=== PATIENT | male | born 1955 | race Caucasian/White ===

== ENCOUNTER 2023-12-21 09:56 | Inpatient (IN) | payer MEDICARE, MEDICAID ==
[~2023-12-21] VITALS: Ht 180.3 cm; Wt 70.4 kg
[2023-12-21] MEDS ORDERED: CYAN500T71 PO (10:37)
[2023-12-21] MEDS ORDERED: QUET-1 PO (10:37)
[2023-12-21] MEDS ORDERED: OLAN5TAB5 PO (10:37)
[2023-12-21] MEDS ORDERED: BENZ1TAB93 PO (10:37)
[2023-12-21] MEDS ORDERED: FERR325T28 PO (10:37)
[2023-12-21] MEDS ORDERED: HALO10TA13 PO ×2 (10:37)
[2023-12-21] MEDS ORDERED: ACET-1008 PO (10:37)
[2023-12-21] MEDS ORDERED: BUSP10TA11 PO (10:37)
[2023-12-21] MEDS ORDERED: ERGO500041 PO (10:37)
[2023-12-21 10:44] LABS: BASOPHILS # (AUTO) 0.1 X10'3 (0-0.2); BASOPHILS % (AUTO) 0.8 % (0-1); EOSINOPHILS # (AUTO) 0.2 X10'3 (0-0.9); HEMOGLOBIN 14.2 g/dl (14.0-17.9); LYMPHOCYTES # (AUTO) 1.2 X10'3 (1.1-4.8); MEAN CORPUSCULAR HEMOGLOBIN 31.6 PG (27.0-31.0); MEAN CORPUSCULAR HGB CONC 33.8 g/dL (33.0-36.5); MEAN CORPUSCULAR VOLUME 93.5 FL (78-98); MEAN PLATELET VOLUME 7.4 FL (7.4-10.4); MONOCYTES # (AUTO) 0.7 X10'3 (0-0.9); MONOCYTES % (AUTO) 8.3 % (2-12); NEUTROPHILS # (AUTO) 6.4 X10'3 (1.8-7.7); NEUTROPHILS % (AUTO) 74.9 % (42-75); PLATELET COUNT 268 X10'3 (140-440); RED BLOOD COUNT 4.49 X10'6 (4.70-6.10); RED CELL DISTRIBUTION WIDTH 13.2 % (11.5-14.5); WHITE BLOOD COUNT 8.5 X10'3 (4.5-11.0)
[2023-12-21 10:52] LABS: BILIRUBIN,URINE NEGATIVE (Neg); CLARITY,URINE CLEAR (Clear); COLOR,URINE YELLOW (Yellow); GLUCOSE, URINE NEGATIVE (Neg); KETONES,URINE NEGATIVE (Neg); LEUKOCYTE ESTERASE ,URINE NEGATIVE (Neg); NITRITES, URINE NEGATIVE (Neg); OCCULT BLOOD,URINE SMALL (Neg); PROTEIN,URINE NEGATIVE (Neg); UROBILINOGEN,URINE 0.2 E.U/dL (0.2-1.0)
[2023-12-21 11:00] LABS: UA COLLECTION TYPE CLN CATCH MIDSTREAM
[2023-12-21 11:07] LABS: ALBUMIN 3.2 G/DL (3.4-5.0); ANION GAP 6 (8-16); BLOOD UREA NITROGEN 19 MG/DL (7-18); BUN/CREATININE RATIO 17.3 (10.0-20.0); CALCIUM 8.6 MG/DL (8.5-10.1); CHLORIDE 104 MMOL/L (99-107); ETHANOL < 10 MG/DL (<10); GLUCOSE 104 MG/DL (70-104); POTASSIUM 3.9 MMOL/L (3.5-5.1); SODIUM 140 MMOL/L (135-145); THYROID STIMULATING HORMONE 0.79 ulU/ml (0.34-4.50); TOTAL CARBON DIOXIDE 30.2 MMOL/L (24-32); eCRCL 74 ML/MIN; eGFR 66 ML/MIN
[2023-12-21] MEDS ORDERED: acetaminophen 325mg tablet PO PRN (11:10)
[2023-12-21 11:16] LABS: URINE AMPHETAMINE SCREEN NEGATIVE (Neg); URINE BARBITUATE SCREEN NEGATIVE (Neg); URINE BENZODIAZEPINES SCREEN NEGATIVE (Neg); URINE CANNABINOID SCREEN NEGATIVE (Neg); URINE COCAINE SCREEN NEGATIVE (Neg); URINE METHADONE SCREEN NEGATIVE (Neg); URINE OPIATE SCREEN NEGATIVE (Neg); URINE PHENCYCLIDINE SCREEN NEGATIVE (Neg)
[2023-12-21 11:22] LABS: WBC,URINE 0-4 /HPF (0-4)
[2023-12-21 11:23] LABS: BACTERIA,URINE FEW /HPF (Neg); MUCUS STRANDS NONE SEEN /LPF (Neg); SQUAMOUS EPITHELIAL CELL,UR NONE SEEN /LPF (FEW)
[2023-12-21] MEDS: mag hydrox/Alum hydrox/simeth 30ml oral suspension PO PRN (14:23)
[2023-12-21] MEDS: busPIRone 5mg tablet PO SCH (20:08)
[2023-12-21] MEDS: cyanocobalamin 500mcg tablet PO SCH (20:10)
[2023-12-21] MEDS: haloperidol 5mg tablet PO SCH (20:10)
[2023-12-21] MEDS: quetiapine 100mg tablet PO SCH (20:11)
[2023-12-21] MEDS: OLANZapine 5mg rapidly disint. tablet PO SCH (20:12)
[2023-12-21] MEDS: LORazepam 1 MG tablet PO PRN (21:35)
[2023-12-21] MEDS: benztropine 1mg tablet PO SCH (21:38)
[2023-12-22] MEDS: haloperidol 5mg tablet PO SCH (09:03)
[2023-12-22] MEDS: ferrous sulfate 325mg tablet PO SCH (09:04)
[2023-12-27] MEDS: Melatonin 3mg tablet PO ONE (01:54)
[2023-12-27] MEDS ORDERED: mag hydrox/Alum hydrox/simeth 30ml oral suspension PO PRN (19:30)
[2023-12-27] MEDS ORDERED: acetaminophen 325mg tablet PO PRN (19:30)
[2023-12-27] MEDS ORDERED: loperamide 2mg capsule PO PRN (19:30)
[2023-12-28] MEDS: nicotine 21mg patch - 24 hr TD SCH (07:44)
[2023-12-28 08:00] VITALS: BP 105/70; PULSE 67; RESP 16; TEMP 98.4; O2SAT 97
[2023-12-28 15:08] LABS: CHOL/HDL RATIO 3.2 (0.00-4.99); CHOLESTEROL 167 MG/DL (0-200); HDL CHOLESTEROL 52 MG/DL (35-60); LDL CHOLESTEROL 94 MG/DL (50-100); TRIGLYCERIDES 146 MG/DL (20-135)
[2023-12-28 15:16] LABS: HEMOGLOBIN A1C 5.4 % (4.5-6.2)
[2023-12-28 19:00] VITALS: BP 112/66; PULSE 80; RESP 16; TEMP 98.6; O2SAT 98
[2023-12-29 08:22] VITALS: BP 104/71; PULSE 73; RESP 12; TEMP 97.4; O2SAT 99
[2023-12-29 19:00] VITALS: BP 124/67; PULSE 83; RESP 14; TEMP 99.2; O2SAT 98
[2023-12-29 19:21] VITALS: RESP 14; O2SAT 98
[2023-12-30 07:00] VITALS: RESP 16; O2SAT 100
[2023-12-30 07:17] VITALS: BP 98/60; PULSE 60; RESP 16; TEMP 97.9; O2SAT 100
[2023-12-30 19:28] VITALS: BP 99/67; PULSE 85; RESP 16; TEMP 98.1; O2SAT 97
[2023-12-31 07:47] VITALS: BP 98/61; PULSE 58; RESP 16; TEMP 98.7; O2SAT 98
[2023-12-31] MEDS: OLANZapine 2.5MG tablet PO SCH (08:36)
[2023-12-31] MEDS: ergocalciferol (vit D2) capsule 50,000 UNITS (1,250mcg) CAPSULE PO SCH (08:37)
[2023-12-31 18:56] VITALS: BP 97/61; PULSE 76; RESP 14; TEMP 98.4; O2SAT 98
[2023-12-31 19:00] VITALS: RESP 14; O2SAT 98
[2023-12-31 19:01] VITALS: BP 97/61; PULSE 76; RESP 14; TEMP 98.4; O2SAT 98
[2023-12-31] MEDS: traZODone 50mg tablet PO SCH (20:11)
[2024-01-01 07:00] VITALS: RESP 16; O2SAT 96
[2024-01-01 08:00] VITALS: BP 94/56; PULSE 73; RESP 16; TEMP 98; O2SAT 96
[2024-01-01 19:14] VITALS: BP 110/60; PULSE 66; RESP 16; TEMP 98.8; O2SAT 98
[2024-01-02 07:00] VITALS: RESP 12; O2SAT 98
[2024-01-02 08:00] VITALS: BP 99/67; PULSE 54; RESP 12; TEMP 97.1; O2SAT 98
[2024-01-02 19:15] VITALS: RESP 15; O2SAT 97
[2024-01-02 19:19] VITALS: BP 108/58; PULSE 88; RESP 15; TEMP 98.3; O2SAT 97
[2024-01-02] MEDS: OLANZapine 5mg rapidly disint. tablet PO SCH (19:57)
[2024-01-03 07:00] VITALS: RESP 14; O2SAT 96
[2024-01-03 08:00] VITALS: BP 105/58; PULSE 65; RESP 14; TEMP 97.7; O2SAT 96
[2024-01-03 19:00] VITALS: RESP 17
[2024-01-03 19:51] VITALS: RESP 17
[2024-01-04 07:00] VITALS: RESP 16; O2SAT 97
[2024-01-04 07:30] VITALS: BP 96/56; PULSE 64; RESP 16; TEMP 97.6; O2SAT 97
[2024-01-04 07:52] LABS: BASOPHILS % (AUTO) 0.9 % (0-1); EOSINOPHILS # (AUTO) 0.3 X10'3 (0-0.9); EOSINOPHILS % (AUTO) 5.4 % (0-6); HEMATOCRIT 37.2 % (42.0-52.0); HEMOGLOBIN 12.5 g/dl (14.0-17.9); LYMPHOCYTES # (AUTO) 1.7 X10'3 (1.1-4.8); LYMPHOCYTES % (AUTO) 32.4 % (21-51); MEAN CORPUSCULAR HEMOGLOBIN 31.4 PG (27.0-31.0); MEAN CORPUSCULAR HGB CONC 33.6 g/dL (33.0-36.5); MEAN CORPUSCULAR VOLUME 93.5 FL (78-98); MEAN PLATELET VOLUME 7.3 FL (7.4-10.4); MONOCYTES # (AUTO) 0.6 X10'3 (0-0.9); MONOCYTES % (AUTO) 11.5 % (2-12); NEUTROPHILS # (AUTO) 2.6 X10'3 (1.8-7.7); NEUTROPHILS % (AUTO) 49.8 % (42-75); PLATELET COUNT 206 X10'3 (140-440); RED BLOOD COUNT 3.98 X10'6 (4.70-6.10); RED CELL DISTRIBUTION WIDTH 12.9 % (11.5-14.5); WHITE BLOOD COUNT 5.3 X10'3 (4.5-11.0)
[2024-01-04 08:17] LABS: ALANINE AMINOTRANSFERASE 31 U/L (12-78); ALBUMIN 2.7 G/DL (3.4-5.0); ALBUMIN/GLOBULIN RATIO 0.9 (1.1-1.5); ALKALINE PHOSPHATASE 47 IU/L (46-116); ANION GAP 6 (8-16); ASPARTATE AMINO TRANSFERASE 21 U/L (10-37); BILIRUBIN,TOTAL 0.4 MG/DL (0.1-1.0); BLOOD UREA NITROGEN 17 MG/DL (7-18); BUN/CREATININE RATIO 17.2 (10.0-20.0); CALCIUM 8.5 MG/DL (8.5-10.1); CHLORIDE 106 MMOL/L (99-107); CREATININE 0.99 MG/DL (0.60-1.10); GLUCOSE 92 MG/DL (70-104); POTASSIUM 3.7 MMOL/L (3.5-5.1); SODIUM 141 MMOL/L (135-145); TOTAL CARBON DIOXIDE 28.8 MMOL/L (24-32); TOTAL PROTEIN 5.8 G/DL (6.4-8.2); eCRCL 66 ML/MIN; eGFR 75 ML/MIN
[2024-01-04 19:30] VITALS: BP 108/75; PULSE 80; RESP 18; TEMP 98; O2SAT 94
[2024-01-05 07:30] VITALS: BP 100/59; PULSE 62; RESP 16; TEMP 98.7; O2SAT 96
[2024-01-05 19:00] VITALS: BP 103/75; PULSE 74; RESP 15; TEMP 98.7; O2SAT 97
[2024-01-06 08:00] VITALS: BP 101/66; PULSE 61; RESP 14; TEMP 97.6; O2SAT 98
[2024-01-06 10:29] VITALS: BP 88/56; PULSE 61; RESP 14; TEMP 97.6; O2SAT 98
[2024-01-06 19:00] VITALS: RESP 18; O2SAT 98
[2024-01-06 19:21] VITALS: BP 101/67; PULSE 73; RESP 18; TEMP 98.2; O2SAT 98
[2024-01-07 07:30] VITALS: PULSE 54; RESP 18; TEMP 97.7; O2SAT 98
[2024-01-07 08:55] VITALS: RESP 18; O2SAT 98
[2024-01-07 11:15] VITALS: BP 97/61; PULSE 54; RESP 18; TEMP 97.7; O2SAT 98
[2024-01-08 07:14] VITALS: BP 91/57; PULSE 51; RESP 14; TEMP 98.2; O2SAT 98
[2024-01-08 09:00] VITALS: RESP 14; O2SAT 98
[2024-01-08 19:30] VITALS: RESP 16; O2SAT 98
[2024-01-08 20:53] VITALS: BP 116/58; PULSE 85; RESP 16; TEMP 98.8; O2SAT 98
[2024-01-09 07:00] VITALS: RESP 12; O2SAT 97
[2024-01-09 08:00] VITALS: BP 101/69; PULSE 57; RESP 12; TEMP 98.6; O2SAT 97
[2024-01-09] MEDS: pantoprazole 40mg Tablet.DR PO SCH (08:19)
[2024-01-09 19:30] VITALS: RESP 16; O2SAT 99
[2024-01-09 20:00] VITALS: BP 92/62; PULSE 106; RESP 16; TEMP 97.2; O2SAT 99
[2024-01-10 07:00] VITALS: RESP 16; O2SAT 96
[2024-01-10 07:30] VITALS: BP 92/57; PULSE 54; RESP 16; TEMP 97.2; O2SAT 96
[2024-01-10 19:00] VITALS: RESP 20; O2SAT 99
[2024-01-10 19:12] VITALS: BP 97/63; PULSE 68; RESP 20; TEMP 97.6; O2SAT 99
[2024-01-11 07:00] VITALS: RESP 14; O2SAT 99
[2024-01-11 08:00] VITALS: BP 92/46; PULSE 54; RESP 15; TEMP 97.9; O2SAT 99
[2024-01-11 09:10] VITALS: BP 99/60
[2024-01-11] MEDS: NICOTINE POLACRILEX 2 MG LOZENGE BC PRN (15:25)
[2024-01-11 19:00] VITALS: BP 90/55; PULSE 60; RESP 18; TEMP 97.9; O2SAT 97
[2024-01-11 19:18] VITALS: RESP 18; O2SAT 97
[2024-01-12 07:30] VITALS: BP 94/63; PULSE 51; RESP 18; TEMP 97.5; O2SAT 98
[2024-01-12 19:00] VITALS: BP 124/82; PULSE 71; RESP 17; TEMP 98.9; O2SAT 98
[2024-01-13 07:30] VITALS: BP 104/54; PULSE 54; RESP 16; TEMP 98; O2SAT 97
[2024-01-13 19:53] VITALS: BP 84/42; PULSE 64; RESP 14; TEMP 98.6; O2SAT 97
[2024-01-13 20:00] VITALS: RESP 14; O2SAT 97
[2024-01-14 07:30] VITALS: BP 85/50; PULSE 62; RESP 16; TEMP 98.5; O2SAT 98
[2024-01-14 08:00] VITALS: BP 95/57
[2024-01-14 19:00] VITALS: RESP 16; O2SAT 97
[2024-01-14 20:01] VITALS: BP 102/71; PULSE 77; RESP 16; TEMP 98.6; O2SAT 97
[2024-01-15 07:00] VITALS: RESP 16; O2SAT 100
[2024-01-15 07:30] VITALS: BP 100/57; PULSE 52; RESP 16; TEMP 97.5; O2SAT 100
[2024-01-15 19:28] VITALS: BP 95/47; PULSE 76; RESP 14; TEMP 98.8; O2SAT 95
[2024-01-15] MEDS: magnesium hydroxide 30ml (MOM) UD suspension PO PRN (20:28)
[2024-01-16 07:00] VITALS: RESP 12; O2SAT 96
[2024-01-16 08:00] VITALS: BP 80/45; PULSE 79; RESP 12; TEMP 97.8; O2SAT 96
[2024-01-16 19:00] VITALS: RESP 18; O2SAT 92
[2024-01-16 19:07] VITALS: BP 145/79; PULSE 62; RESP 18; TEMP 98.6; O2SAT 92
[2024-01-17 07:30] VITALS: BP 98/49; PULSE 63; RESP 12; RESP 15; TEMP 98; O2SAT 95
[2024-01-17 19:00] VITALS: RESP 16; O2SAT 99
[2024-01-17 19:01] VITALS: BP 100/60; PULSE 58; RESP 16; TEMP 98; O2SAT 99
[2024-01-17 20:20] VITALS: PULSE 73
[2024-01-18 07:00] VITALS: RESP 16; O2SAT 94
[2024-01-18 07:30] VITALS: BP 100/57; PULSE 54; RESP 16; TEMP 98.8; O2SAT 94
[2024-01-18 19:00] VITALS: RESP 18; O2SAT 98
[2024-01-18 19:11] VITALS: BP 96/56; PULSE 60; RESP 18; TEMP 97.8; O2SAT 98
[2024-01-19 07:30] VITALS: BP 94/45; PULSE 55; RESP 16; TEMP 98.2; O2SAT 95
[2024-01-19] MEDS: acetaminophen 325mg tablet PO PRN (10:29)
[2024-01-19] MEDS ORDERED: cyclobenzaprine 10mg tablet PO PRN (14:30)
[2024-01-19 19:30] VITALS: BP 111/66; PULSE 66; RESP 20; TEMP 97.8; O2SAT 91
[2024-01-20 07:00] VITALS: RESP 16; O2SAT 98
[2024-01-20 08:00] VITALS: BP 114/54; PULSE 56; RESP 16; TEMP 98.3; O2SAT 98
[2024-01-20] MEDS: cyclobenzaprine 10mg tablet PO SCH (15:05)
[2024-01-20 19:30] VITALS: RESP 14; O2SAT 96
[2024-01-20 20:28] VITALS: BP 95/61; PULSE 72; RESP 14; TEMP 98.8; O2SAT 96
[2024-01-21 07:00] VITALS: RESP 18; O2SAT 96
[2024-01-21 08:00] VITALS: BP 90/50; PULSE 54; RESP 18; TEMP 98; O2SAT 96
[2024-01-21 19:30] VITALS: BP 114/69; PULSE 73; RESP 16; TEMP 98.9; O2SAT 96
[2024-01-22 07:00] VITALS: RESP 16; O2SAT 96
[2024-01-22 08:00] VITALS: BP 90/55; PULSE 60; RESP 16; TEMP 98.8; O2SAT 96
[2024-01-22 12:23] LABS: BASOPHILS % (AUTO) 0.4 % (0-1); EOSINOPHILS # (AUTO) 0.3 X10'3 (0-0.9); EOSINOPHILS % (AUTO) 4.2 % (0-6); HEMATOCRIT 40.4 % (42.0-52.0); HEMOGLOBIN 13.5 g/dl (14.0-17.9); LYMPHOCYTES # (AUTO) 1.5 X10'3 (1.1-4.8); LYMPHOCYTES % (AUTO) 24.4 % (21-51); MEAN CORPUSCULAR HGB CONC 33.4 g/dL (33.0-36.5); MEAN CORPUSCULAR VOLUME 92.7 FL (78-98); MEAN PLATELET VOLUME 7.8 FL (7.4-10.4); MONOCYTES # (AUTO) 0.6 X10'3 (0-0.9); MONOCYTES % (AUTO) 10.2 % (2-12); NEUTROPHILS # (AUTO) 3.8 X10'3 (1.8-7.7); NEUTROPHILS % (AUTO) 60.8 % (42-75); PLATELET COUNT 229 X10'3 (140-440); RED BLOOD COUNT 4.36 X10'6 (4.70-6.10); RED CELL DISTRIBUTION WIDTH 12.8 % (11.5-14.5); WHITE BLOOD COUNT 6.2 X10'3 (4.5-11.0)
[2024-01-22 19:17] VITALS: BP 94/67; PULSE 63; RESP 14; TEMP 98.6; O2SAT 96
[2024-01-23 07:30] VITALS: BP 107/59; PULSE 57; RESP 12; TEMP 98.8; O2SAT 99
[2024-01-23] MEDS: tuberculin, purif. prot. deriv. 5 units/0.1ml ID ONE (12:25)
[2024-01-23 19:14] VITALS: RESP 18; O2SAT 95
[2024-01-23 19:24] VITALS: BP 92/57; PULSE 64; RESP 18; TEMP 98.9; O2SAT 95
[2024-01-24 07:30] VITALS: BP 110/67; PULSE 56; RESP 15; TEMP 98.4; O2SAT 96
[2024-01-24 19:00] VITALS: RESP 16; O2SAT 99
[2024-01-24 19:09] VITALS: BP 104/65; PULSE 66; RESP 16; TEMP 97.5; O2SAT 99
[2024-01-25 07:30] VITALS: BP 97/58; PULSE 64; RESP 12; TEMP 98.3; O2SAT 95
[2024-01-25] MEDS: magnesium hydroxide 30ml (MOM) UD suspension PO ONE (13:54)
[2024-01-25 19:00] VITALS: RESP 18; O2SAT 98
[2024-01-25 19:47] VITALS: BP 112/74; PULSE 65; RESP 18; TEMP 97.7; O2SAT 98
[2024-01-25] MEDS: docusate sod 100mg capsule PO SCH (20:57)
[2024-01-26 07:00] VITALS: RESP 16; O2SAT 96
[2024-01-26 07:30] VITALS: BP 103/49; PULSE 54; RESP 16; TEMP 97.7; O2SAT 96
[2024-01-26 19:00] VITALS: RESP 20; O2SAT 97
[2024-01-26 19:17] VITALS: BP 98/51; PULSE 76; RESP 20; TEMP 97.8; O2SAT 97
[2024-01-27 00:11] LABS: BILIRUBIN,URINE NEGATIVE (Neg); CLARITY,URINE CLEAR (Clear); COLOR,URINE STRAW (Yellow); GLUCOSE, URINE NEGATIVE (Neg); KETONES,URINE NEGATIVE (Neg); LEUKOCYTE ESTERASE ,URINE NEGATIVE (Neg); NITRITES, URINE NEGATIVE (Neg); OCCULT BLOOD,URINE SMALL (Neg); PH,URINE 5.5 (4.8-8.0); PROTEIN,URINE NEGATIVE (Neg); UROBILINOGEN,URINE 0.2 E.U/dL (0.2-1.0)
[2024-01-27 00:21] LABS: UA COLLECTION TYPE NON-SPECIFIED
[2024-01-27 00:23] LABS: BACTERIA,URINE FEW /HPF (Neg); SQUAMOUS EPITHELIAL CELL,UR FEW /LPF (FEW); WBC,URINE 0-4 /HPF (0-4)
[2024-01-27 06:40] VITALS: PULSE 54; RESP 15; TEMP 97; O2SAT 96
[2024-01-27 08:00] VITALS: BP 109/83; PULSE 89
[2024-01-27 08:27] VITALS: RESP 15; O2SAT 96
[2024-01-27 13:53] LABS: OCCULT BLOOD STOOL NEGATIVE (Neg)
[2024-01-27] MEDS: magnesium citrate 296ml oral solution PO ONE (17:51)
[2024-01-27 19:00] VITALS: RESP 16; O2SAT 97
[2024-01-27 19:15] VITALS: BP 112/76; PULSE 77; RESP 16; TEMP 98.8; O2SAT 97
[2024-01-28 07:06] VITALS: BP 108/66; PULSE 64; RESP 18; TEMP 97.6; O2SAT 100
[2024-01-28 08:40] VITALS: RESP 18; O2SAT 100
[2024-01-28] MEDS: bisacodyl 10mg suppository rectal RC ONE (17:59)
[2024-01-28 19:00] VITALS: BP 108/65; PULSE 72; RESP 16; TEMP 97.7; O2SAT 97
[2024-01-28] MEDS: polyethylene glycol 3350 17gm powd pack PO SCH (19:59)
[2024-01-29 08:54] VITALS: RESP 18
[2024-01-29 08:59] VITALS: BP 122/64; PULSE 87; RESP 18; TEMP 97.6; O2SAT 98
[2024-01-29 19:00] VITALS: BP 130/80; PULSE 111; RESP 18; TEMP 99.6; O2SAT 98
[2024-01-29 19:30] VITALS: RESP 20; O2SAT 97
[2024-01-30 07:00] VITALS: RESP 17; O2SAT 100
[2024-01-30 07:30] VITALS: BP 103/56; PULSE 66; RESP 17; TEMP 98.2; O2SAT 100
[2024-01-30 19:00] VITALS: RESP 18; O2SAT 94
[2024-01-30 19:36] VITALS: BP 98/63; PULSE 73; RESP 18; TEMP 98.1; O2SAT 94
[2024-01-30] MEDS: OLANZapine 5mg rapidly disint. tablet PO SCH (20:18)
[2024-01-31 07:00] VITALS: RESP 15; O2SAT 97
[2024-01-31 07:30] VITALS: BP 97/52; PULSE 58; RESP 15; TEMP 98.2; O2SAT 97
[2024-01-31] MEDS ORDERED: magnesium hydroxide 30ml (MOM) UD suspension PO PRN (12:50)
[2024-01-31] MEDS: bisacodyl 10mg suppository rectal RC PRN (14:07)
[2024-01-31 19:00] VITALS: RESP 18; O2SAT 95
[2024-01-31 20:00] VITALS: BP 110/71; PULSE 80; RESP 18; TEMP 97.8; O2SAT 97
[2024-01-31] MEDS: docusate sod 100mg capsule PO SCH (20:13)
[2024-01-31] MEDS: lactulose 20gm/30ml cup PO SCH (20:19)
[2024-02-01 06:52] VITALS: RESP 14; O2SAT 96
[2024-02-01 08:00] VITALS: BP 101/62; PULSE 60; RESP 14; TEMP 98; O2SAT 97
[2024-02-01] MEDS ORDERED: BENZ1TAB78 PO (13:10)
[2024-02-01] MEDS ORDERED: BISA10SU11 RC (13:10)
[2024-02-01] MEDS ORDERED: FERR325T28 PO (13:10)
[2024-02-01] MEDS ORDERED: ERGO50002 PO (13:10)
[2024-02-01] MEDS ORDERED: CYAN500T71 PO (13:10)
[2024-02-01] MEDS ORDERED: TRAZ-256 PO (13:10)
[2024-02-01] MEDS ORDERED: DOCU250C16 PO (13:10)
[2024-02-01] MEDS ORDERED: PANT40TA54 PO (13:10)
[2024-02-01] MEDS ORDERED: BUSP10TA3 PO (13:10)
[2024-02-01] MEDS ORDERED: HALO10TA13 PO (13:15)
[2024-02-01] MEDS ORDERED: HALO20TA7 PO (13:15)
[2024-02-01] MEDS ORDERED: OLAN-1 PO ×2 (13:15)
[2024-02-01 19:00] VITALS: RESP 15; O2SAT 98
[2024-02-01 20:00] VITALS: BP 97/63; PULSE 98; RESP 15; TEMP 97; O2SAT 98
[2024-02-02 07:31] VITALS: BP 93/55; PULSE 54; RESP 14; TEMP 98.5; O2SAT 96
[2024-02-02 19:12] VITALS: BP 114/64; PULSE 70; RESP 18; TEMP 97.4; O2SAT 97
[2024-02-02 19:13] VITALS: RESP 18; O2SAT 97
[2024-02-02] MEDS: docusate sod 100mg capsule PO SCH (20:12)
[2024-02-03 07:30] VITALS: BP 110/64; PULSE 62; RESP 14; TEMP 98.3; O2SAT 98
[2024-02-03] MEDS: magnesium citrate 296ml oral solution PO ONE (15:42)
[2024-02-03 19:24] VITALS: BP 107/70; PULSE 85; RESP 16; TEMP 98.9; O2SAT 96
[2024-02-04 07:00] VITALS: RESP 12; O2SAT 96
[2024-02-04 08:00] VITALS: BP 103/62; PULSE 62; RESP 12; TEMP 99.5; O2SAT 96
== END 2024-02-04 14:30 | DRG 885 ==
LOC: ER 09:57 → ADULT MH 12-27 18:30
PROVIDERS: ADMIT Psychiatry & Neurology Psychiatry; ATTEND Psychiatry & Neurology Psychiatry
PROC: GZHZZZZ Group Psychotherapy (ICD-10-PCS; principal; 2023-12-28)
PROC: GZ56ZZZ Individual Psychotherapy, Supportive (ICD-10-PCS; 2023-12-28)
PROC: 0HBRXZZ Excision of Toe Nail, External Approach (ICD-10-PCS; 2024-01-21)
PROC: 0HBRXZZ Excision of Toe Nail, External Approach (ICD-10-PCS; 2024-01-21)
PROC: 0HBRXZZ Excision of Toe Nail, External Approach (ICD-10-PCS; 2024-01-21)
PROC: 0HBRXZZ Excision of Toe Nail, External Approach (ICD-10-PCS; 2024-01-21)
PROC: 0HBRXZZ Excision of Toe Nail, External Approach (ICD-10-PCS; 2024-01-21)
PROC: 0HBRXZZ Excision of Toe Nail, External Approach (ICD-10-PCS; 2024-01-21)
PROC: 0HBRXZZ Excision of Toe Nail, External Approach (ICD-10-PCS; 2024-01-21)
DX: F25.0 Schizoaffective disorder, bipolar type (principal); D64.9 Anemia, unspecified; Z20.822 Contact with and (suspected) exposure to COVID-19; E55.9 Vitamin D deficiency, unspecified; F17.210 Nicotine dependence, cigarettes, uncomplicated; F41.9 Anxiety disorder, unspecified; K59.00 Constipation, unspecified; Z53.29 Procedure and treatment not carried out because of patient's decision for other reasons; B35.1 Tinea unguium; Z87.820 Personal history of traumatic brain injury
CPT/HCPCS: 36415; 70450; 74018; 80048; 80053; 80061; 80305; 80320; 81001; 82272; 83036; 84443; 85025; 87081; 87811; 99285; A6250; J3490

== ENCOUNTER 2025-03-03 08:58 | Emergency (ER) | payer MEDICARE, MEDICAID ==
[~2025-03-03] VITALS: Ht 180.3 cm; Wt 84.6 kg
[~2025-03-03 08:58] MED LIST: ACET-1008 PO; BENZ1TAB78 PO; BISA10SU11 RC; BUSP10TA3 PO; CYAN500T71 PO; DOCU250C16 PO; ERGO50002 PO; FERR325T28 PO; HALO10TA13 PO; HALO20TA7 PO; OLAN-1 PO; PANT40TA54 PO; TRAZ-256 PO
[2025-03-03 09:02] VITALS: BP 115/58; PULSE 80; RESP 19; TEMP 99.2; O2SAT 95
--- NOTE | 2025-03-03 09:31 | Physician Documentation ---
History of Present Illness ~ Chief Complaint: Toe pain Stated Complaint: TOE PAIN Time Seen by MD: 09:01 Primary Medical Doctor: n/a HPI This is a 69-year-old male who presents requesting his severely overgrown toenails be trimmed as there causing injury to his other toes. Patient reports no other acute symptoms or concerns. Patient is accompanied by staff member from a residential facility who reports that toenail clippers has been ordered for the patient though they are delayed in arriving. Tetanus witin 5 years: No Medication Reconciliation Allergies: Coded Allergies: No Known Allergies (Unverified , 12/21/23) Scheduled Acetaminophen (Tylenol), 650 MG PO Q4H PRN PAIN, (Reported) Benztropine Mesylate (Benztropine Mesylate), 1.5 MG PO HS Buspirone HCl (Buspirone HCl), 1 TAB PO Q12H Cyanocobalamin* (Vitamin B-12*), 1,000 MCG PO BID Docusate Sodium (Docusate Sodium), 1 CAP PO Q12H Ergocalciferol (Vitamin D2), 50,000 UNITS PO Q14D Ferrous Sulfate* (Ferrous Sulfate*), 1 TAB PO DAILY Haloperidol (Haloperidol), 1 TAB PO DAILY Haloperidol (Haloperidol), 1 TAB PO HS Olanzapine (ZyPREXA ZYDIS tablet), 10 MG PO HS Olanzapine (ZyPREXA ZYDIS tablet), 5 MG PO DAILY Pantoprazole Sodium (Pantoprazole Sodium), 40 MG PO BKF Trazodone HCl (Trazodone HCl), 1 TAB PO HS Scheduled PRN Bisacodyl (Bisacodyl), 10 MG RC DAILY PRN for constipation Past Medical History Past Medical History: Bipolar, Psychosis, Schizophrenia Alcohol Use: Occasionally Drug Use: none Review of Systems ROS As stated above in the HPI, otherwise all systems are reviewed and negative. Physical Exam Vital Signs: Temperature: 99.2, Source: Temporal, Heart Rate: 80, Respiratory Rate: 19, BP: 115/58, Pulse Oximetry: 95, Weight: 84.600 Oxygen Flow Rate: 0 Physical Exam VITALS: Reviewed and as above. GENERAL: Alert, nontoxic appearing, no apparent distress. RESPIRATORY: No increased work of breathing, no respiratory distress, speaking in full clear sentences EXTREMITIES: Bilateral toes severely overgrown toenails, the toenail of the left 1st toe is causing abrasion to the dorsal surface of the left 2nd toe without evidence of infection. Sensation and pedal pulse intact bilaterally, brisk capillary refill bilateral feet. Progress Results/Orders Results/Orders Vital Signs 03/03/25 09:02 Temp 99.2 Pulse 80 Resp 19 B/P (MAP) 115/58 Pulse Ox 95 O2 Flow Rate 0 Medical Decision Making Findings This 69-year-old male presented with severely overgrown toenail, due to overgrown toenails affecting the skin of other toes the most of ingrown toenails were trimmed back though patient will require definitive management by podiatr ist. Patient has been advised of this fact along with facility staff, patient and facility staff who verbalized understanding of the need for Podiatry. Patient has additionally been advised to utilize toenail clippers to keep his toenails maintained to decrease impact to other toes. Care instructions, return to care precautions and follow up instructions discussed with the patient and caregiver who verbalized understanding. Toe Diff Dx:Considerations: Include: Abrasion, Cellulitis, Laceration, Neurovascular injury, Paronychia Departure Time of Disposition: 09:43 Disposition: 01 HOME / SELF CARE / HOMELESS Impression: Primary Impression: Overgrown toenails Condition: Improved Additional Instructions: Due to the condition of your toes you require a child care sitter for definitive care of your overgrown toenails. I have trimmed back the two large toenails to decrease the impact on your other toes however you will need to obtain a toenail clipper to maintain your toenails and see a child care sitter for further management of your toenail conditions. You may need to pad between your toes or apply a dres sing such as a Band-Aid to the toe that has been impacted by your large toenail. Please follow up with your primary care provider in the next few days. Please return to the emergency department for any new or worsening concerning symptoms. Referrals: NO PRIMARY CARE PROVIDER (PCP) Education Educated: Patient Educated regarding: diagnosis, treatment, prognosis, need for follow up Signature Scribe Signature: No scribe Attestation: The note accurately reflects work and decisions made by me.YULI Stevenson 03/04/25 20:40 HUDSON LIND Mar 03, 2025 09:31
== END 2025-03-03 09:51 | disposition home or self-care (01) ==
LOC: ER 08:59
DX: M79.675 Pain in left toe(s) (principal); M79.674 Pain in right toe(s); F20.9 Schizophrenia, unspecified
CPT/HCPCS: 99282

== ENCOUNTER 2025-06-22 13:35 | Outpatient (CLI) | payer MEDICARE, MEDICAID ==
--- NOTE | 2025-06-22 14:40 | RADIOLOGY REPORT ---
PROCEDURE: CT CT CHEST LOW DOSE Reason for study/Clinical History: NICOTINE DEPENDENCE, UNSPECIFIED, UNCOMPLICATED COMPARISON: None TECHNIQUE: Multidetector CT of the chest was performed from the lung apices to the upper abdomen without the use of intravenous contract. Axial, coronal and sagittal multiplanar reformats were performed. Radiation Dose Information: CT Dose: CTDI volume is 3.9 mGy. Dose-length product is 136 mGy*cm The dose indicators for CT are the volume Computed Tomography (CT) Dose Index (CTDIvol) and the Dose Length Product (DLP), and are measured in units of mGy and mGy-cm, respectively. These indicators are not patient dose, but values generated from the CT scanner acquisition factors. The report includes radiation exposure data for exposures received during this examination. FINDINGS: Lower neck: Normal thyroid. Lungs: No focal consolidation. No suspicious pulmonary nodules Heart/Vascular Structures: Normal heart size. No pericardial effusion. Lymph Nodes: No adenopathy Pleura: No pleural effusion or significant pneumothorax. Musculoskeletal: No acute osseous abnormality. Soft tissues: Normal. Upper abdomen: Distended stomach. Moderate to large volume colonic stool. IMPRESSION: No suspicious pulmonary nodule. LUNG RADS Category 1: Continue annual screening with LDCT
== END 2025-06-22 23:59 | disposition home or self-care (01) ==
LOC: RAD 13:35
PROVIDERS: ATTEND Nurse Practitioner Occupational Health
DX: Z12.2 Encounter for screening for malignant neoplasm of respiratory organs (principal); F17.210 Nicotine dependence, cigarettes, uncomplicated
CPT/HCPCS: 71271